=== PATIENT | female | born 1980 | race Caucasian/White ===

== ENCOUNTER → 2022-04-02 09:28 | Outpatient (CLI) | payer OTHER, SELFPAY ==
--- NOTE | ~2022-04-02 | MR_ITS ---
EXAMINATION: MR knee LT wo con DATE: 04/02/2022 10:01 INDICATION: Lateral sided chronic left knee pain. TECHNIQUE: Magnetic resonance imaging (MRI) of the left knee was performed without intravenous contra st. Sequences included axial PD-weighted FS FSE, coronal PD-weighted FSE and PD-weighted FS FSE, sagi ttal PD-weighted FSE, and sagittal T2-weighted FS FSE. COMPARISON: None. FINDINGS: Medial compartment: Meniscus intact. Linear 2 x 14 mm area of full-thickness cartilage loss on the medial femoral condyle , in a background of moderate diffuse cartilage thinning. Mild osteophytosis. Lateral compartment: Meniscus intact. Mild diffuse cartilage thinning. Mild osteophytosis. Patellofemoral compartment: Near full-thickness linear cartilage defect with adjacent fraying on the medial facet. Retinacula int act. Ligaments and tendons: ACL, PCL, MCL, and LCL are intact. Remaining flexor and extensor tendons are intact. Fluid: Large volume joint fluid. Moderate-sized Krishna's cyst cyst. Osseous/other: No suspicious focal or diffuse marrow signal. IMPRESSION: 1. Linear area of full-thickness cartilage loss on the weightbearing surface of the medial femoral co ndyle. 2. Moderate chondral malacia patellae. 3. Large joint effusion. 4. Moderate Krishna's cyst. Reviewed, dictated and finalized at location K. IMPRESSION: 1. Linear area of full-thickness cartilage loss on the weightbearing surface of the medial femoral condyle. 2. Moderate chondral malacia patellae. 3. Large joint effusion. 4. Moderate Krishna's cyst.
== END ==
PROVIDERS: PCP Family Medicine; Visit Provider Orthopaedic Surgery
DX: M25.562 Pain in left knee (principal); G89.29 Other chronic pain; M94.262 Chondromalacia, left knee; M25.462 Effusion, left knee; M71.22 Synovial cyst of popliteal space [Baker], left knee
CPT/HCPCS: 73721